=== PATIENT | female | born 1980 | race Caucasian/White ===

== ENCOUNTER → 2017-12-24 | Outpatient (REF) | payer OTHER ==
[2017-12-24 15:36] LABS: ERYTHROCYTE SEDIMENTATION RATE 4 mm/hr (0-20)
[2017-12-24 15:45] LABS: RHEUMATOID FACTOR QUANT < 10.0 IU/ML (0-15.0)
[2017-12-24 16:15] LABS: FOLATE 17.1 NG/ML; VITAMIN B12 LEVEL 546 PG/ML
[2017-12-24 17:01] LABS: TOTAL 25(OH) VITAMIN D 8.1 NG/ML (30.0-100.0)
== END ==
LOC: M LABNEURO 13:25
DX: E55.9 Vitamin D deficiency, unspecified (principal); R20.0 Anesthesia of skin

== ENCOUNTER → 2018-01-23 | Outpatient (CLI) | payer BC, OTHER ==
[~2018-01-23] MED LIST: GASTROGRAFIN SOLUTION 30ML (Q9963) As Ordered; ISOVUE-370 76% 100ML VIAL (Q9967) As Ordered
== END ==
LOC: M RAD 11:20
DX: C34.92 Malignant neoplasm of unspecified part of left bronchus or lung (principal)

== ENCOUNTER → 2018-01-30 | Outpatient (REF) | payer OTHER ==
[2018-01-30 18:33] LABS: BASO # 0.1 10^3/uL (0.0-0.2); BASO % 0.6 % (0.0-1.0); EOS # 0.1 10^3/uL (0.0-0.50); HEMATOCRIT 42.1 % (36.0-47.0); HEMOGLOBIN 14.3 g/dl (12.0-16.0); IMMATURE GRANULOCYTE % 0.5 % (0-3.0); LYMPH % 25.3 % (24.0-44.0); MEAN CORPUSCULAR HEMOGLOBIN 28.5 pg (27.0-33.0); MEAN CORPUSCULAR VOLUME 83.9 fl (80.0-96.0); MONO # 0.5 10^3/uL (0.0-0.8); MONO % 6.7 % (0.0-5.0); NEUTROPHILS # 5.1 10^3/uL (1.8-7.7); NEUTROPHILS % 65.9 % (36.0-66.0); PLATELET COUNT, AUTOMATED 259 10^3/uL (150-450); RED BLOOD COUNT 5.02 10^6/uL (4.00-5.40); RED CELL DISTRIBUTION WIDTH 13.9 % (11.5-14.5); WHITE BLOOD COUNT 7.7 10^3/uL (4.0-10.0)
[2018-01-30 19:16] LABS: ALBUMIN 4.4 GM/DL (3.2-5.2); ALBUMIN/GLOBULIN RATIO 1.29 (1.00-1.93); ALKALINE PHOSPHATASE 87 U/L (45-117); ALT/SGPT 53 U/L (12-78); AST/SGOT 36 U/L (7-37); BILIRUBIN,DIRECT 0.2 MG/DL (0.0-0.2); BILIRUBIN,TOTAL 0.7 MG/DL (0.2-1.0); CALCIUM LEVEL 9.4 MG/DL (8.5-10.1); GLOMERULAR FILTRATION RATE > 60.0 (>60); TOTAL PROTEIN 7.8 GM/DL (6.4-8.2)
[2018-01-30 20:21] LABS: TOTAL 25(OH) VITAMIN D 8.1 NG/ML (30.0-100.0)
== END ==
LOC: M LAB REF 17:16
DX: R91.8 Other nonspecific abnormal finding of lung field (principal)

== ENCOUNTER 2018-02-05 08:59 | Day surgery (SDC) | payer BC, OTHER ==
[2018-02-05] MEDS: LR 1,000 ML IV ×2 (09:15)
[2018-02-05 09:34] LABS: CONTROL LINE UCG INT CTR LINE PRESENT; URINE PREG TEST NEGATIVE (NEGATIVE)
[2018-02-05] MEDS ORDERED: PROPOFOL 200 MG/20 ML VIAL As Ordered ×2 (10:28)
[2018-02-05] MEDS ORDERED: LIDOCAINE 2% INJ 100 MG/5 ML SYRINGE As Ordered ×2 (10:28)
[2018-02-05] MEDS ORDERED: MIDAZOLAM INJ 2 MG/2 ML VIAL (J2250) As Ordered ×2 (10:29)
[2018-02-05] MEDS ORDERED: ROCURONIUM BROMIDE 50 MG/5 ML VIAL As Ordered ×2 (10:30)
[2018-02-05] MEDS ORDERED: fentaNYL 100 MCG/2 ML INJECTION (J3010) As Ordered ×2 (10:30)
[2018-02-05] MEDS: LIDOCAINE 2% JELLY 30 ML As Ordered ×2 (11:51)
[2018-02-05] MEDS: EPINEPHrine INJ 1 MG/ML 1ML AMP As Ordered ×2 (11:51)
[2018-02-05] MEDS: EPINEPHrine 1MG/10ML SYRINGE 1.5IN As Ordered ×2 (12:01)
[2018-02-05] MEDS: CETACAINE SPRAY 5GM As Ordered ×2 (12:41)
[2018-02-05] MEDS: LIDOCAINE 1% SDV INJ 30 ML VIAL As Ordered ×2 (12:41)
[2018-02-05] MEDS: LIDOCAINE VISCOUS 2% SOLN 15ML UDC As Ordered ×2 (13:31)
[2018-02-05] MEDS ORDERED: METOCLOPRAMIDE INJ 10MG/2ML VIAL (J2765) As Ordered ×2 (13:48)
[2018-02-05] MEDS: METOCLOPRAMIDE INJ 10MG/2ML VIAL (J2765) IV ×2 (13:55)
[2018-02-05] MEDS ORDERED: PERCOCET 5MG/325MG TAB PO ×2 (14:15)
[2018-02-05] MEDS ORDERED: fentaNYL 100 MCG/2 ML INJECTION (J3010) IV ×2 (14:15)
[2018-02-05] MEDS ORDERED: LR 1,000 ML IV ×2 (14:15)
[2018-02-05] MEDS ORDERED: MEPERIDINE INJ 25 MG/ML VIAL (J2175) IV ×2 (14:15)
[2018-02-05] MEDS ORDERED: PROMETHAZINE INJ 25 MG/ML VIAL (J2550) As Ordered ×2 (14:23)
[2018-02-05] MEDS: ONDANSETRON 4MG/2ML VIAL (J2405) IV ×2 (14:30)
[2018-02-05] MEDS: PROMETHAZINE INJ 25 MG/ML VIAL (J2550) IV ×2 (14:35)
== END 2018-02-05 16:35 | disposition home or self-care (01) ==
LOC: M SDC 08:59
DX: R91.1 Solitary pulmonary nodule (principal); D86.0 Sarcoidosis of lung
CPT/HCPCS: 31629

== ENCOUNTER → 2018-09-27 | Outpatient (CLI) | payer BC, OTHER | LOC: M SLEEP 19:24 | DX: R40.0 Somnolence (principal); R06.83 Snoring | CPT/HCPCS: 95810 ==